=== PATIENT | male | born 1970 | race Caucasian/White ===

== ENCOUNTER → 2020-02-14 | Outpatient (CLI) | payer OTHER | END | disposition home or self-care (01) | LOC: PLD 12:00 → LAB SHORT 12:00 | DX: D22.5 Melanocytic nevi of trunk (principal) | CPT/HCPCS: 88305 ==

== ENCOUNTER → 2020-03-12 | Outpatient (CLI) | payer OTHER | END | disposition home or self-care (01) | LOC: LAB SHORT 12:34 → PLD 12:34 | DX: C43.59 Malignant melanoma of other part of trunk (principal) | CPT/HCPCS: 88305 ==

== ENCOUNTER → 2020-06-26 | Outpatient (CLI) | payer OTHER | END | disposition home or self-care (01) | LOC: PLD 11:04 → LAB SHORT 11:04 | DX: D48.5 Neoplasm of uncertain behavior of skin (principal) | CPT/HCPCS: 88305 ==

== ENCOUNTER → 2021-09-21 | Outpatient (CLI) | payer OTHER | END | disposition home or self-care (01) | LOC: LAB 11:45 → LAB SHORT 11:45 | DX: D22.5 Melanocytic nevi of trunk (principal) | CPT/HCPCS: 88305 ==

== ENCOUNTER 2025-07-22 07:46 | Day surgery (SDC) | payer OTHER ==
[~2025-07-22] VITALS: Ht 182.9 cm; Wt 105.0 kg
[2025-07-22] VITALS (14 sets, daily range): BP systolic 120–138; BP diastolic 77–94
--- NOTE | 2025-07-22 09:04 | NUR ---
History, Chart, Medications and Allergies reviewed before start of procedure. Patient States Post-Procedure ride home has been arranged.
--- NOTE | 2025-07-22 09:21 | NUR ---
07/22/25 0921 Mona Levy COLONOSCOPE USED SERIAL #[id number]
--- NOTE | 2025-07-22 10:38 | NUR ---
Ambulatory in Day Surgery WITH STEADY GAIT. Discharge instructions reviewed with patient. Patient verbalizes understanding. Copy given to patient to take home. ALL BELONGINGS RETURNED TO PT. AT BEDSIDE DURING RECOVERY AND DISCHARGE. Discharged via wheelchair to private car for ride home WITH SPOUSE.
== END 2025-07-22 10:39 | disposition home or self-care (01) ==
LOC: ORSCMMR 07:46 → ORD 08:30 → ORSCMMR 10:39
PROVIDERS: Internal Medicine Gastroenterology
PROC: 0DBC8ZX Excision of Ileocecal Valve, Via Natural or Artificial Opening Endoscopic, Diagnostic (ICD-10-PCS; principal; 2025-07-22 08:30)
DX: Z12.11 Encounter for screening for malignant neoplasm of colon (principal); D13.39 Benign neoplasm of other parts of small intestine; K52.9 Noninfective gastroenteritis and colitis, unspecified; K57.30 Diverticulosis of large intestine without perforation or abscess without bleeding; K64.4 Residual hemorrhoidal skin tags
CPT/HCPCS: 88305; J2704; J7120